=== PATIENT | female | born 1965 | race Caucasian/White ===

== ENCOUNTER 2018-11-23 10:40 | Emergency (ER) | payer OTHER ==
[~2018-11-23] VITALS: Ht 162.6 cm; Wt 63.0 kg
[~2018-11-23 10:40] MED LIST: ADVIL200 MG PO; KETO10TA2 PO; ORPH100T PO; TOPROL XL25 MG PO
[2018-11-23] MEDS ORDERED: ETODOLAC200 MG (10:55)
== END 2018-11-23 12:44 | disposition home or self-care (01) ==
LOC: ER 10:40
DX: M94.0 Chondrocostal junction syndrome [Tietze] (principal)

== ENCOUNTER 2019-03-24 22:09 | Emergency (ER) | payer OTHER ==
[~2019-03-24] VITALS: Ht 160 cm; Wt 65.3 kg
[~2019-03-24 22:09] MED LIST changes: +ETODOLAC200 MG
[2019-03-24] MEDS ORDERED: SKELAXIN ×2 (23:00→23:04)
[2019-03-24] MEDS ORDERED: MILLIPRED5 MG (23:01)
[2019-03-24] MEDS ORDERED: CARDESARTAN (23:01)
[2019-03-24] MEDS ORDERED: SYNTHROID50 MCG (23:01)
[2019-03-24] MEDS ORDERED: NAPROXEN500 MG (23:02)
[2019-03-24] MEDS ORDERED: CRESTOR5 MG (23:05)
== END 2019-03-25 01:46 | disposition home or self-care (01) ==
LOC: ER 22:09
DX: M75.51 Bursitis of right shoulder (principal)